=== PATIENT | female | born 1960 | race Caucasian/White ===

== ENCOUNTER 2022-11-11 14:39 | Outpatient (OUT) | payer OTHER, SELFPAY ==
--- NOTE | 2022-11-11 14:42 | MM_ITS ---
Patient: CUONG MORIN Exam Date: 11/11/2022 : 1960 Gender:F Ordering : DR Ej Quigley . Admission #: [id number] Family : CHELA SINGH Order #: [id number] CLICK HERE TO VIEW EXAM RADIOLOGY REPORT PROCEDURE: MM TOMOSYNTHESIS SCREENING BI COMPARISON: [facility] MAMM SCREEN 3D [facility] CAD, 11/10/2021. [facility] MAMM SCREEN 3D [facility] CAD, 11/04/2020. MG MAMM [facility] SCRN W CAD DIG, 10/12/2019. INDICATIONS: Screening mammogram Z12.31 Calculator Name NCI Breast Cancer Risk Assessment Tool 5 Year Breast Cancer Risk 1.30% Lifetime Breast Cancer Risk 6.60% Personal Breast Cancer No Personal Ovarian Cancer No Treatments None Family Cancers Father with lung cancer at age 56; Father with throat cancer at age 65. LOCATION: [facility] BREAST COMPOSITION: Almost entirely fatty. FINDINGS: DIAGNOSTIC CATEGORY 1--NEGATIVE. RIGHT BREAST: No significant suspicious finding. No significant change has occurred. LEFT BREAST: No significant suspicious finding. No significant change has occurred. RECOMMENDATIONS: ROUTINE MAMMOGRAM AND CLINICAL EVALUATION IN 12 MONTHS. PLEASE NOTE: A NORMAL MAMMOGRAM DOES NOT EXCLUDE THE POSSIBILITY OF BREAST CANCER. A CLINICALLY SUSPICIOUS PALPABLE LUMP SHOULD BE BIOPSIED. Dictated by: Phillip De La Cruz M.D. on 11/11/2022 at 15:54 Approved by: Phillip De La Cruz M.D. on 11/11/2022 at 15:56
== END 2022-11-11 14:40 | disposition home or self-care (01) ==
LOC: MAMMO 14:39
PROVIDERS: PCP Nurse Practitioner; Visit Provider Obstetrics & Gynecology
DX: Z12.31 Encounter for screening mammogram for malignant neoplasm of breast (principal); Z80.1 Family history of malignant neoplasm of trachea, bronchus and lung; Z80.8 Family history of malignant neoplasm of other organs or systems
CPT/HCPCS: 77063; 77067